=== PATIENT | male | born 1955 | race Caucasian/White ===

== ENCOUNTER 2016-09-25 10:05 | Outpatient (CLI) | payer MEDICAID ==
[~2016-09-25 10:05] MED LIST: ARIPIPRAZO10 MG/TABL PO; ASPIRIN 81MG TA81 MG PO; BACTRIM DS TAB1 EACH PO; CELEXA 20MG TAB20 MG PO; CLINDAMYCIN HC300 MG PO; COUMADIN 5MG TAB5 MG PO; DOXYCYCLINE HY100 M4 PO; HYDROCODONE/ACE1 TA9 PO; KEFLEX 500MG.500 MG PO; KEFLEX500 M1 PO; LISINOPRIL/HCTZ1 TA3 PO; LISINOPRIL1 POW; LOVENOX 150150 MG/ML SC; PLAVIX75 MG PO; RISPERIDONE0.5 M2 PO; SENNA DOCUSATE1 TAB PO; TESSALON PERLE200 MG PO
[2016-09-25 10:26] VITALS: BP 98/56
[2016-09-25 10:56] VITALS: BP 101/54
[2016-09-25 11:26] VITALS: BP 105/60
[2016-09-25 11:56] VITALS: BP 99/54
[2016-09-25 12:10] VITALS: BP 104/55
== END 2016-09-25 12:15 | disposition home or self-care (01) ==
LOC: COP 10:05
DX: M86.8X8 Other osteomyelitis, other site (principal); B95.62 Methicillin resistant Staphylococcus aureus infection as the cause of diseases classified elsewhere
CPT/HCPCS: J3370

== ENCOUNTER 2016-09-26 09:15 | Outpatient (CLI) | payer MEDICAID ==
[2016-09-26 09:34] LABS: HEMOGLOBIN 15.4 g/dL (14.1-18.0); LYMPH # 1.7 K/mm3 (0.7-4.5); LYMPH % 20.4 % (10-50)
[2016-09-26 09:48] LABS: BUN 27 mg/dL (7-18); GFR (ESTIMATED) 41 ML/MIN (>60)
[2016-09-26 10:42] VITALS: BP 108/71
[2016-09-26 11:12] VITALS: BP 110/61
[2016-09-26 11:42] VITALS: BP 106/67
[2016-09-26 12:12] VITALS: BP 111/68
[2016-09-26 12:25] VITALS: BP 109/64
== END 2016-09-26 12:29 | disposition home or self-care (01) ==
LOC: COP 09:15
PROVIDERS: Orthopaedic Surgery
DX: M86.8X8 Other osteomyelitis, other site (principal); B95.62 Methicillin resistant Staphylococcus aureus infection as the cause of diseases classified elsewhere
CPT/HCPCS: J3370

== ENCOUNTER 2016-09-27 08:40 | Outpatient (CLI) | payer MEDICAID ==
[~2016-09-27] VITALS: Ht 182.9 cm; Wt 90.7 kg
[2016-09-27 09:30] VITALS: BP 103/59
[2016-09-27 09:45] VITALS: BP 103/59
[2016-09-27 10:15] VITALS: BP 122/65
--- NOTE | 2016-09-27 10:28 | CONSULT NOTE ---
Pharmacokinetic Consult Date of consult: 09/27/16 Time of consult: 1026 Referring provider: DR. RODRIGUEZ Reason for consult: VANCOMYCIN TROUGH LEVEL Allergies: Coded Allergies: morphine (Mild, 09/19/16) Home Medications: Active Scripts CITALOPRAM HYDROBROMIDE (Citalopram HBr) 20 MG PO DAILY #30 TAB Ref 2 Prov: 08/06/16 HYDROCODONE/ACETAMINOPHEN (Hydrocodon-Acetaminophen 5-325) 1 TAB PO Q4HP PRN MODERATE TO SEVERE PAIN #30 TAB Prov: 08/06/16 SENNOSIDES-DOCUSATE SODIUM (Senokot-S Tablet) 1 TAB PO DAILY #10 TAB Prov: 08/24/16 Reported Medications Risperidone 0.5 MG PO DAILY #30 TAB WARFARIN SOD (Coumadin) 5 MG PO DAILY ENOXAPARIN SODIUM (Lovenox) 135 MG SC DAILY Lisinopril & Hctz (Lisinopril-Hctz 10-12.5 MG Tab) 1 TAB PO DAILY ASPIRIN (Aspirin) 81 MG PO DAILY Height (feet): 6 Height (inches): 0.00 Medical History: CAD? No Angina: No [place]: No Hypertension? Yes Hyperlipidemia? No CHF? No DVT? No PE? No COPD? No Asthma? No Anemia? No GERD? No Gastric ulcers? No GI Bleed? No Hernia? Yes Thyroid Problems? No Hypothyroidism? No CVA? No Seizures? No Diabetes? No Renal Insuffiency? No UTI? No Stones? No BPH? No GB Disease: No Nephritic Syndrome? No Asplenia? No Hepatitis? No Sickle Cell Disease? No Arthritis? No Migraines? No Cataracts? No Glaucoma? No MRSA? No HIV? No TB? No Anxiety? No Depression? No Cancer? No More? No Labs: Laboratory Tests 09/27/16 0845: PT 13.4 H, INR 1.25 H, Vancomycin Trough 16.1 H Problem List: 1. Osteomyelitis Plan: BASED ON VANCOMYCIN TROUGH LEVEL, RECOMMEND CONTINUING VANCOMYCIN 1750 MG IV DAILY. PHARMACY WILL CONTINUE TO MONITOR DAILY AND ADJUST APPROPRIATE. at 1024
[2016-09-27 10:45] VITALS: BP 108/61
[2016-09-27 11:15] VITALS: BP 114/64
[2016-09-27 11:40] VITALS: BP 103/58
== END 2016-09-27 12:05 | disposition home or self-care (01) ==
LOC: COP 08:40
DX: M86.8X8 Other osteomyelitis, other site (principal); B95.62 Methicillin resistant Staphylococcus aureus infection as the cause of diseases classified elsewhere
CPT/HCPCS: J3370

== ENCOUNTER 2016-09-28 08:00 | Outpatient (CLI) | payer MEDICAID ==
[~2016-09-28] VITALS: Ht 182.9 cm; Wt 90.7 kg
[2016-09-28 08:35] VITALS: BP 91/59
[2016-09-28 09:35] VITALS: BP 106/63
[2016-09-28 10:05] VITALS: BP 120/67
[2016-09-28 10:30] VITALS: BP 134/65
== END 2016-09-28 10:50 | disposition home or self-care (01) ==
LOC: COP 08:00
DX: M86.8X8 Other osteomyelitis, other site (principal); B95.62 Methicillin resistant Staphylococcus aureus infection as the cause of diseases classified elsewhere
CPT/HCPCS: J3370

== ENCOUNTER 2016-09-29 08:43 | Outpatient (CLI) | payer MEDICAID ==
[2016-09-29 09:30] VITALS: BP 134/78
== END 2016-09-29 11:30 | disposition home or self-care (01) ==
LOC: COP 08:43
DX: M86.8X8 Other osteomyelitis, other site (principal); B95.62 Methicillin resistant Staphylococcus aureus infection as the cause of diseases classified elsewhere
CPT/HCPCS: J3370

== ENCOUNTER → 2016-09-30 | Outpatient (CLI) | payer MEDICAID ==
[~2016-09-30] VITALS: Ht 182.9 cm; Wt 90.7 kg
[2016-09-30 09:15] VITALS: BP 117/65
[2016-09-30 11:35] VITALS: BP 106/52
== END ==
LOC: COP 09:08
DX: M86.8X8 Other osteomyelitis, other site (principal); B95.62 Methicillin resistant Staphylococcus aureus infection as the cause of diseases classified elsewhere
CPT/HCPCS: J3370

== ENCOUNTER → 2017-01-25 | Outpatient (CLI) | payer MEDICAID ==
[~2017-01-25] MED LIST changes: +XARELTO20 MG PO
[2017-01-25 10:30] LABS: HEMOGLOBIN 16.6 g/dL (14.1-18.0); LYMPH # 1.5 K/mm3 (0.7-4.5); LYMPH % 15.5 % (10-50)
[2017-01-25 11:47] LABS: BILIRUBIN, INDIRECT 0.14 mg/dL (0-0.9); BUN 22 mg/dL (7-18)
[2017-01-25 11:48] LABS: GFR (ESTIMATED) 41 ML/MIN (>60)
== END ==
LOC: LAB 09:41
PROVIDERS: Internal Medicine
DX: I20.8 Other forms of angina pectoris (principal); I10 Essential (primary) hypertension; E78.5 Hyperlipidemia, unspecified; R94.31 Abnormal electrocardiogram [ECG] [EKG]; Z72.0 Tobacco use

== ENCOUNTER 2017-02-15 20:28 | Emergency (ER) | payer MEDICAID ==
[~2017-02-15] VITALS: Ht 182.9 cm; Wt 95.3 kg
--- NOTE | 2017-02-15 21:32 | Emergency Room Report ---
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 N Clinical Suspician of Infection? N Mental Status: 1 - Regular (Normal Baseline) Sepsis Risk:Low Sepsis Risk Have you (or family members/close friends) recently traveled outside the [place]? N If Yes, where/when: Have you had exposure to infectious disease within the past month? N TB? Other? Specify: Source patient, RN notes reviewed, family, old records Exam Limitations no limitations Comment pt with syncopal episode after drinking etoh and working in sun today and on meds - he had no loc or neuro sx and no sz - pt at baseline at this time Cardiac Chest Pain Chest pain indicative of cardiac No Timing/Duration this evening Severity moderate ALLERGIES Coded Allergies: morphine (Mild, 10/19/16) Home Medications Active Scripts CITALOPRAM HYDROBROMIDE (Citalopram HBr) 20 MG PO DAILY #30 TAB Ref 2 Prov: 08/06/16 HYDROCODONE/ACETAMINOPHEN (Hydrocodon-Acetaminophen 5-325) 1 TAB PO Q4HP PRN MODERATE TO SEVERE PAIN #30 TAB Prov: 08/06/16 SENNOSIDES-DOCUSATE SODIUM (Senokot-S Tablet) 1 TAB PO DAILY #10 TAB Prov: 08/24/16 Reported Medications Risperidone 0.5 MG PO DAILY #30 TAB Rivaroxaban (Xarelto) 15 MG PO BID Lisinopril & Hctz (Lisinopril-Hctz 10-12.5 MG Tab) 1 TAB PO DAILY ASPIRIN (Aspirin) 81 MG PO DAILY History Medical History General CAD? No Angina: No [place]: No Hypertension? Yes Hyperlipidemia? No CHF? No DVT? No PE? No COPD? No Asthma? No Anemia? No GERD? No Gastric ulcers? No GI Bleed? No Hernia? Yes Thyroid Problems? No Hypothyroidism? No CVA? No Seizures? No Diabetes? No Renal Insuffiency? No End Stage Renal Disease? No UTI? No Stones? No BPH? No GB Disease: No Nephritic Syndrome? No Asplenia? No Hepatitis? No Sickle Cell Disease? No Arthritis? No Migraines? No Cataracts? No Glaucoma? No MRSA? No HIV? No TB? No Anxiety? No Depression? No Cancer? No More? No Immunization Hx DT/Tetanus Unknown Flu Refused Pneumonia Refuses Surgical Hx Previous Surgery?Y Hernia Repair AMPUTATION LEFT GREAT TOE Family History Family Hx Diabetes Yes CAD No Hypertension Yes Hyperlipidemia No Cancer No TB No Social History Smoking Hx Smoker: Current Every Day Smoker Tobacco: Yes Type Cigarettes Packs/day < 1 Pack Alcohol Alcohol: No Drugs none Review of Systems All Other Systems Reviewed and Negative Constitutional denies fever Eyes denies drainage ENT denies: ear pain, epistaxis, throat pain. Respiratory denies cough, denies shortness of breath, denies wheezing Cardiovascular see HPI, denies chest pain, denies palpitations, syncope Gastrointestinal denies abdominal pain, denies diarrhea, denies vomiting Genitourinary denies: dysuria, frequency, hesitancy, hematuria. Musculoskeletal denies back pain, denies joint pain, denies neck pain Skin see HPI, denies rash, other Psychiatric/Neurological denies seizure Physical Exam Vital Signs Vital Signs Date Time Temp Pulse Resp B/P Pulse O2 O2 Flow FiO2 Ox Delivery Rate 02/15 2045 98.0 81 16 105/55 96 - WBC >12,000 or <4,000 or 10% bands? 2 or more SIRS Criteria Met? B/P:105/55 MAP:71 Creatinine >2.0? UA output<0.5ml/kg/hr for 2 hrs? Platelet count >100,000? Lactate >2.0mmol/1? INR >1.2 or PTT > than 60 sec? Evidence of Organ Dysfunction? Provider documented clinical suspician of infection? N Sepsis Criteria Count: 0 Sepsis Risk: Low Sepsis Risk General Appearance no apparent distress Eye Exam - bilateral eye PERRL, bilateral eye EOMI Ear, Nose, Throat normal ENT inspection, no tongue biting Neck non-tender Respiratory Status No: respiratory distress. 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 No Results/Orders Laboratory Tests 02/15/172144: Alcohols 39 02/15/172144: Sodium 140, Potassium 3.4 L, Chloride 103, Carbon Dioxide 25, BUN 40 H, Creatinine 2.7 H, Estimated Creat Clear 39 L, Estimated GFR (MDRD) 24, Glucose 92, Calcium 8.8, Total Bilirubin 0.4, AST 23, ALT 35, Alkaline Phosphatase 68, Creatine Kinase 257, CK-MB (CK-2) Rel Index 1.8, CK and CKMB Interp 4.6 H, Troponin I < 0.02, Total Protein 8.3 H, Albumin 4.2, Globulin 4.1 H, Albumin/ Globulin Ratio 1.0 L, WBC 10.2, RBC 5.89, Hgb 17.5, Hct 53.2 H, MCV 90.4, RDW 13.8, Plt Count 157, MPV 9.7, Gran % 70.0, Gran # 7.1, Lymphocytes % 18.2, Monocytes % 8.4, Eosinophils % 2.5, Basophils % 0.8, Lymphocytes # 1.9, Monocytes # 0.9, Eosinophils # 0.3, Basophils # 0.1, PUBS MCHC 32.8, MCH 29.7, Salicylates 4.2, Acetaminophen 0 L Current Medication Orders Sig/Ozzie Start time Last Medication Dose Route Stop Time Status Admin Lidocaine HCl 0 .STK-MED ONE 02/16 2312 DC .ROUTE Sodium Chloride 1,000 ML .STK-MED ONE 02/16 2120 DC IV Aspirin 0 .STK-MED ONE 02/15 2119 DC .ROUTE Aspirin 324 MG ONCE ONE 02/15 2115 DC 02/15 PO 02/15 Sodium Chloride 1,000 ML .Q1H1M 02/15 2115 DC 02/15 IV 02/15 Sodium Chloride 10 ML PRN PRN 02/15 2115 AC IV 02/16 2101 Sodium Chloride 10 ML PRN PRN 02/15 2100 AC IV 02/17 2056 Sodium Chloride 10 ML PRN PRN 02/15 2100 AC IV 02/16 2058 Orders Procedure Date/time Status DIET-NOTHING BY MOUTH 02/[address] HEAD W/O CONTRAST 02/15 2105 Active SALICYLATE 02/15 2101 Complete Acetaminophen 02/15 2101 Complete 12 LEAD EKG-MIRIAM (INITIAL) 02/15 2059 Active ELECTROCARDIOGRAM REQUEST 02/[address] HEAD REQ 02/15 2059 Active IV SALINE LOCK 02/15 2059 Active URINALYSIS/COMPLETE 02/15 2059 Active CBC WITH AUTO DIFF 02/15 2059 Complete CARDIAC ENZYMES 02/15 2059 Complete CHEM 12 PROFILE 02/15 2059 Complete ALCOHOL 02/15 2059 Complete 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 ST/Twave chgs XRAY/CT/US XRAY/CT/US CT head CT interpretation by discussed w/radiologist Time results known: 6 CT Results normal/NAD Procedures Laceration/Wound Repair Laceration/Wound Repair Risks/benefits discussed with pt/guardian? Yes Tetanus status up to date Wound Location head Wound Length (cm) 2 Wound's Depth, Shape flap(s) Wound Explored no FB identified Risk of retained FB explained to pt/guardian? Yes Irrigated w/ Saline (ccs) 0 Wound Prep Hibiclens, Saline Anesthesia 1% Lidocaine, Local Volume Anesthetic (ccs) 3 Wound Debrided none Wound Repaired With sutures, Dermabond Suture Size/Type 4:0, Ethilon Layer Closure No Total Number Sutures 7 Sterile Dressing Applied Yes Splint Applied No Sling Applied No Departure Departure Time of Disposition 2334 Disposition DC Home or Self Care(routine) Clinical Impression Primary Impression: Syncope Qualifiers: Syncope type: unspecified Qualified Code: R55 - Syncope and collapse Secondary Impressions: Renal insufficiency Scalp laceration Qualifiers: Encounter type: initial encounter Qualified Code: S01.01XA - Laceration without foreign body of scalp, initial encounter Condition STABLE Referrals Debora BUTLER,Tru Champion (Family) Patient Instructions DI for Laceration Repair Additional Instructions recheck saturday and stop lisinopril and fluids and no etoh and limit work and recheck if any problems Discharge Counseling Counseled pt/family regarding diagnosis, test results, follow up needs ED Critical Care Critical Care No at 2168
[2017-02-15 21:59] LABS: HEMOGLOBIN 17.5 g/dL (14.1-18.0); LYMPH # 1.9 K/mm3 (0.7-4.5); LYMPH % 18.2 % (10-50)
[2017-02-15 22:28] LABS: BUN 40 mg/dL (7-18)
[2017-02-15 22:39] LABS: GFR (ESTIMATED) 24 ML/MIN (>60)
[2017-02-15 23:50] VITALS: BP 105/55
--- NOTE | 2017-02-16 07:35 | RADIOLOGY REPORT PS360 ---
CT HEAD W/O CONTRAST HISTORY: Headache, pain secondary to injury with laceration, syncope SYNCOPE ORDERING PHYSICIAN: Maury Cazares MD PATIENT AGE: 61 years COMPARISON: 12/08/2013 TECHNIQUE: Axial images obtained without contrast. Brain and bone windows reviewed. FINDINGS: No midline shift, mass effect, intracranial hemorrhage, hydrocephalus, or extra-axial fluid collection is evident. Nonspecific hypoattenuation periventricular white matter likely due to chronic microvascular gliotic changes The calvarium has an unremarkable appearance. No mastoid effusion. No sinus air-fluid level. IMPRESSION: No acute intracranial findings
== END 2017-02-15 23:51 | disposition home or self-care (01) ==
LOC: ER 20:28
PROVIDERS: Emergency Medicine
PROC: 0HQ0XZZ Repair Scalp Skin, External Approach (ICD-10-PCS; principal; 2017-02-15)
DX: R55 Syncope and collapse (principal); S01.01XA Laceration without foreign body of scalp, initial encounter; F10.10 Alcohol abuse, uncomplicated; F17.210 Nicotine dependence, cigarettes, uncomplicated; W18.39XA Other fall on same level, initial encounter; Y92.009 Unspecified place in unspecified non-institutional (private) residence as the place of occurrence of the external cause; I10 Essential (primary) hypertension; Z79.899 Other long term (current) drug therapy; Z88.6 Allergy status to analgesic agent

== ENCOUNTER → 2017-02-18 | Outpatient (CLI) | payer MEDICAID ==
[2017-02-18 10:41] LABS: BUN 26 mg/dL (7-18); GFR (ESTIMATED) 44 ML/MIN (>60)
== END ==
LOC: LAB 08:48
PROVIDERS: Emergency Medicine
DX: N18.9 Chronic kidney disease, unspecified (principal); E86.0 Dehydration

== ENCOUNTER → 2017-02-20 | Outpatient (CLI) | payer MEDICAID ==
--- NOTE | 2017-02-21 12:56 | RADIOLOGY REPORT PS360 ---
History and Indications: Hypertension, tobacco use, family history, chest pain, shortness of breath and palpitations Procedure: Patient received a 0.4 mg of Lexiscan, resting heart rate was 56 bpm, resting blood pressure 121/73, scan maximum heart rate achieved was 85 bpm which is less than 85% of the maximum predicted heart rate and a blood pressure was 100/56. With Lexiscan patient complained of shortness of breath and nausea Electrocardiogram: Resting electrocardiogram showed sinus bradycardia, with Lexiscan there is less than 1.[address] segment depression noted from the baseline EKG. The EKG portion of the Lexiscan Myoview is nondiagnostic. Cardiac stress and resting SPECT images: Cardiac stress and rest SPECT images were obtained using Tc 99 Myoview 10.8 mCi at rest, and 30.8 mCi at stress, gated SPECT further analysis of segmental wall motion and calculation of the ejection fraction also done. Cardiac stress and rest SPECT images show decreased tracer activity in the inferolateral and posterobasal wall which partially improves on the resting suggestive of combination of ischemia and scar. Computer derived ejection fraction is 47% with moderate hypokinesis involving the inferolateral and posterobasal wall. Right ventricle is normal size and contractility. Conclusion: 1. The EKG portion of the Lexiscan Myoview is nondiagnostic. 2. Scintigraphic evidence of combination of ischemia and scar involving the inferolateral and posterobasal wall, greater derived ejection fraction is 47% with segmental wall motion abnormalities as described above, right ventricle is normal size and contractility. 3. Abnormal Lexiscan Myoview study.
--- NOTE | 2017-02-21 15:53 | RADIOLOGY REPORT PS360 ---
PROCEDURE: 2-D M-mode and color Doppler study INDICATIONS FOR THE TEST: Chest pain+ COPD+ Heart Murmur Tobacco Smoking+ Palpitations+ Fatigue+ Syncope Edema Hypertension Diabetes Mellitus Rheumatic Fever SOB MEDRANO Obesity Hyperlipidemia+ Family History HD+ Additional History Angina PATIENT INFORMATION HEIGHT: 72 WEIGHT: 200 GENDER: Male B/P: 154/72 2-D/M-MODE INTERPRETATION: 2-D MEASUREMENTS OBSERVED VALUES IN CMS Right Ventricular Dimension (RVDd) 2.4 Interventricular Septum (Thickness)(IVsd) 1.0 Left Ventricular Internal Dimensions(LVIDd) 5.3 Left Ventricular Posterior Wall (Thickness)(LVPWd) 1.0 Aortic Root 3.0 Aortic Cusp Separation 2.4 Left Atrial Dimensions (LAD) 3.6 2D 1. Left atrium is normal size, left ventricle is normal size, there is no concentric left ventricular hypertrophy, visually estimated ejection fraction 55% with no obvious regional wall motion abnormality. 2. The right atrium and right ventricle are normal size and contractility. 3. The aortic valve is minimally thickened and fibrosed. 4. The mitral and tricuspid valve are structurally normal. 5. The pulmonic valve is poorly visualized. 6. No significant pericardial effusion noted. DOPPLER INTERROGATION: Doppler interrogation of the aortic, mitral and tricuspid valvular presence of mild mitral and tricuspid regurgitation, tricuspid regurgitant jet velocity is insufficient for calculation of the right ventricular systolic pressure, diastolic parameters are within normal range. CONCLUSION: 1. Normal left ventricular size, preserved left ventricular systolic function, visually estimated ejection fraction 55% with no obvious regional wall motion abnormality. Diastolic parameters are within normal range. 2. Mild mitral and tricuspid regurgitation. 3. No significant pericardial effusion noted.
== END ==
LOC: RAD 06:50
DX: I48.0 Paroxysmal atrial fibrillation (principal); I10 Essential (primary) hypertension; E78.5 Hyperlipidemia, unspecified; R94.31 Abnormal electrocardiogram [ECG] [EKG]; Z72.0 Tobacco use
CPT/HCPCS: A9502; J2785

== ENCOUNTER → 2017-02-25 | Outpatient (CLI) | payer MEDICAID ==
[2017-02-25 19:53] LABS: BUN 23 mg/dL (7-18)
[2017-02-25 20:18] LABS: GFR (ESTIMATED) 44 ML/MIN (>60)
== END ==
LOC: LAB 17:13
PROVIDERS: Physician Assistant
DX: I10 Essential (primary) hypertension (principal)